=== PATIENT | female | born 1995 | race Caucasian/White ===

== ENCOUNTER 2021-05-25 08:14 | Emergency (ER) | payer BC ==
[2021-05-25] MEDS ORDERED: Adacel Vial IM ONE ×2 (08:26→08:38)
[2021-05-25 08:35] VITALS: PULSE 88
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
[2021-05-25 10:02] VITALS: BP 128/75
[2021-05-25 12:00] VITALS: O2SAT 100
== END 2021-05-25 10:04 | disposition home or self-care (01) ==
LOC: ED 08:14
DX: S80.02XA Contusion of left knee, initial encounter (principal); V58.5XXA Driver of pick-up truck or van injured in noncollision transport accident in traffic accident, initial encounter; Y93.84 Activity, sleeping; Y92.410 Unspecified street and highway as the place of occurrence of the external cause
CPT/HCPCS: 73562; 90471; 90715; 99285